=== PATIENT | female | born 1965 | race Caucasian/White ===

== ENCOUNTER → 2017-09-23 | Outpatient (CLI) | payer BC ==
--- NOTE | 2017-09-25 11:20 | MAM ---
EXAM DESCRIPTION: 3D Screening BILATERAL CLINICAL HISTORY: 52 yearsFemaleSCREENING . No complaints. Mother with breast cancer. Hysterectomy. No HRT. Bilateral breast augmentation COMPARISON: 2-D digital screening bilateral study 11/30/2013. No prior reports available. TECHNIQUE: Bilateral digital screening. CC and MLO projection full-field, 2-D images. Bilateral Ziggy implant displacement images, CC and MLO full-field projections, 3-D tomosynthesis. CAD for 2-D images. FINDINGS: The breast parenchymal density pattern is: Heterogeneously dense breast tissue, which may obscure small masses. No skin thickening or nipple retraction bilaterally. Solitary microcalcifications bilaterally. Bilateral saline type subpectoral implants. Implant capsules appear intact where seen. No focal, stellate mass or density no focal asymmetry, and no suspicious microcalcifications bilaterally Stable mammograms compared to prior study, taking into account differences in mammographic technique. IMPRESSION: BI-RADS CATEGORY: 2 - BENIGN FINDINGS. FOLLOW UP: Routine digital bilateral screening, one year interval from September 2017. Written communication explaining the IMPRESSION and follow-up, will be mailed to the patient and referring health care provider. According to the [employer], yearly mammograms are recommended starting at age 40 and continuing as long as a woman is in good health. Any breast change noted on a breast self-exam should be reported promptly to the patient's healthcare provider. Breast MRI is recommended for women with an approximately 20-25% or greater lifetime risk of breast cancer, including women with a strong family history of breast or ovarian cancer and women who have been treated for Hodgkin's disease. A negative mammographic report should not delay tissue diagnosis in patients with significant clinical history or physical findings. Extremely dense breast tissue limits the sensitivity of digital mammography. Electronically signed by: Pawel Liu MD 09/25/2017 11:19 AM [facility]
== END ==
LOC: MAMMO 10:37
PROVIDERS: ATTEND Obstetrics & Gynecology
DX: Z12.31 Encounter for screening mammogram for malignant neoplasm of breast (principal)
CPT/HCPCS: 77063; G0202

== ENCOUNTER → 2018-12-08 | Outpatient (CLI) | payer BC, OTHER ==
--- NOTE | 2018-12-09 19:30 | MAM ---
EXAM DESCRIPTION: 3D Screening BILATERAL : Digital Mammography. CLINICAL HISTORY: 53 years Female SCREENING . No complaints. No personal history of breast cancer. Mother with breast cancer. Childbirth. Hysterectomy. Currently on HRT. Bilateral breast augmentation. Lifetime risk of developing breast cancer (Tyrer-Cuzick model)(%): 16.6. COMPARISON: Bilateral screening digital breast tomosynthesis with Ziggy implant displacement technique 09/23/2017 TECHNIQUE: Bilateral CC and MLO projection full-field images, with Ziggy Implant Displacement digital tomosynthesis mammographic technique. Bilateral 2-D digital full-field images, MLO and CC projections, non-displaced. CAD Bilateral digital 2-D full-field MLO images. CAD not available for tomosynthesis or 2-D images. FINDINGS: The breast parenchymal density pattern is: Heterogeneously dense breast tissue, which may obscure small masses. No skin thickening or nipple retraction. Small region of architectural distortion in the lower inner quadrant of the middle third of the left breast is stable since the prior study. Bilateral saline intramuscular implants. Capsules are intact where seen. Left axillary lymph nodes. No new focal, stellate mass or density, focal asymmetry , and no suspicious microcalcifications bilaterally. Stable mammograms compared to prior study. IMPRESSION: Benign exam. BIRAD CATEGORY: 2 BENIGN FINDINGS. RECOMMENDATIONS: FOLLOW UP: Routine digital bilateral mammographic screening, one year interval from November 2018. Written communication explaining the IMPRESSION and follow-up, will be mailed to the patient and referring health care provider. According to the [employer], yearly mammograms are recommended starting at age 40 and continuing as long as a woman is in good health. Any breast change noted on a breast self-exam should be reported promptly to the patient's healthcare provider. Breast MRI is recommended for women with an approximately 20-25% or greater lifetime risk of breast cancer, including women with a strong family history of breast or ovarian cancer and women who have been treated for Hodgkin's disease. A negative mammographic report should not delay tissue diagnosis in patients with significant clinical history or physical findings. Extremely dense breast tissue limits the sensitivity of digital mammography. Electronically signed by: Pawel Liu MD 12/09/2018 7:27 PM [facility]
== END ==
LOC: MAMMO 10:00
PROVIDERS: ATTEND Obstetrics & Gynecology
DX: Z12.31 Encounter for screening mammogram for malignant neoplasm of breast (principal)

== ENCOUNTER → 2019-03-09 | Outpatient (CLI) | payer BC, OTHER | LOC: LAB.O 09:36 | PROVIDERS: ATTEND Internal Medicine Endocrinology, Diabetes & Metabolism | DX: C73 Malignant neoplasm of thyroid gland (principal) ==

== ENCOUNTER → 2019-09-16 | Outpatient (CLI) | payer BC | LOC: LAB.O 08:29 | PROVIDERS: ATTEND Family Medicine | DX: R63.4 Abnormal weight loss (principal); N95.9 Unspecified menopausal and perimenopausal disorder; R35.0 Frequency of micturition; E03.9 Hypothyroidism, unspecified; E55.9 Vitamin D deficiency, unspecified ==

== ENCOUNTER → 2019-12-05 | Outpatient (CLI) | payer BC | LOC: YCFC.O 12:07 | PROVIDERS: ATTEND Family Medicine | DX: R82.79 Other abnormal findings on microbiological examination of urine (principal) ==

== ENCOUNTER → 2020-05-28 | Outpatient (CLI) | payer BC | LOC: YCFC.O 09:41 | PROVIDERS: ATTEND Nurse Practitioner | DX: Z20.828 Contact with and (suspected) exposure to other viral communicable diseases (principal) ==

== ENCOUNTER → 2020-08-31 | Outpatient (CLI) | payer BC ==
--- NOTE | 2020-09-01 15:40 | US ---
EXAM DESCRIPTION: Abdomen,Complete: Ultrasound. CLINICAL HISTORY: 54 years Female ABDOMINAL MASS. Family history of abdominal aortic aneurysm. COMPARISON: None Available. TECHNIQUE: Transabdominal scanning: grayscale and Doppler modes. FINDINGS: Gallbladder: Surgically removed. No fluid in the gallbladder fossa. Non-tender abdominal wall with transducer pressure. Common bile duct: caliber 6 mm upper normal limits. Liver: normal echogenicity; contour liver capsule smooth where seen. No fluid around the liver. Intrahepatic biliary ducts normal caliber. Doppler hepatopedal flow and normal caliber portal vein 7.5 mm.. Long axis right lobe 15.8 cm.. Pancreas: normal size and echogenicity. Duct not seen. Complete abdominal aorta: Normal caliber from the proximal segment to the distal bifurcation.. IVC: visualized and normal caliber. Right kidney: long axis measures 9.7 cm; volume 101.1. Cortical echogenicity is normal. Normal cortical thickness. No echogenic stones; no hydronephrosis. Left kidney: long axis measures 9.7 cm; volume 113.6. Cortical echogenicity is normal. Normal cortical thickness. No echogenic stones; no hydronephrosis. Spleen: Normal. No focal lesions.. 9.8 cm long axis. Other: Heterogeneous hypoechoic mass which has a capsule in the midline abdomen interpreted to be within the anterior subcutaneous tissues with mass effect on the anterior abdominal wall. Overall dimensions are 5.9 x 5.4 x 2.3 cm. Minimally vascular with small fluid component. IMPRESSION: 1. Heterogeneous midline abdominal wall mass with minimal vascularity and fluid collection. 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 Consider follow-up CT scan abdomen and pelvis without and with IV contrast. 2. Prior cholecystectomy. Common bile duct normal caliber postcholecystectomy. No fluid in the gallbladder fossa. Nontender abdominal wall. 3. Liver and pancreas are negative. Normal caliber of the IVC and abdominal aorta. 4. Bilateral kidneys and spleen are unremarkable. Electronically signed by: Pawel Liu MD 09/01/2020 3:39 PM CDT
--- NOTE | 2020-09-01 15:44 | RAD ---
EXAM DESCRIPTION: Knee,Left Complete: CR/DR/XR. CLINICAL HISTORY: 54 years FemalePAIN IN LEFT KNEE COMPARISON: Ultrasound abdomen on the same visit. TECHNIQUE: 3 views AP, lateral, and patellar sunrise left knee. FINDINGS: Minimal suprapatellar effusion. Possible posterior fusion. In the lateral compartments are unremarkable. Question of subchondral radiolucency or other lesions in the patella best seen on the lateral and patellar sunrise images. Venous varicosities. Normal bone density. No fracture or dislocation. IMPRESSION: Suprapatellar effusion and posterior fusion to the medial and lateral compartments. Probable subchondral bone defects in the patella. No fractures. Electronically signed by: Pawel Liu MD 09/01/2020 3:42 PM CDT
--- NOTE | 2020-09-04 08:43 | MAM ---
EXAM DESCRIPTION: 3D Screening BILATERAL : Digital Mammography. CLINICAL HISTORY: 54 years Female ANNUAL SCREENING . No complaints. Mother with breast cancer age 60. Menarche age 15. Childbirth age 29. Menopause age unknown. No HRT. Bilateral breast augmentation. Lifetime risk of developing breast cancer (Tyrer-Cuzick model)(%): 16.3. COMPARISON: Bilateral screening digital breast tomosynthesis November 2018 and September 2017. TECHNIQUE: Bilateral CC and MLO projection full-field images, with Ziggy Implant Displacement digital tomosynthesis mammographic technique. Bilateral 2-D digital full-field images, MLO and CC projections, non-displaced. Bilateral digital 2-D full-field MLO images. : Implant displaced CAD available for 2-D images. FINDINGS: The breast parenchymal density pattern is: Heterogeneously dense breast tissue, which may obscure small masses. No skin thickening or nipple retraction. Solitary microcalcifications. Bilateral subpectoral implants. Early calcification of the capsules. Capsules appear intact where seen. No new focal, stellate mass or density, focal asymmetry , and no suspicious microcalcifications bilaterally. Stable mammograms compared to prior study. IMPRESSION: Benign exam. BIRAD CATEGORY: 2 BENIGN FINDINGS. RECOMMENDATIONS: FOLLOW UP: Routine digital bilateral mammographic screening, one year interval from August 2020. Written communication explaining the IMPRESSION and follow-up, will be mailed to the patient and referring health care provider. According to the [employer], yearly mammograms are recommended starting at age 40 and continuing as long as a woman is in good health. Any breast change noted on a breast self-exam should be reported promptly to the patient's healthcare provider. Breast MRI is recommended for women with an approximately 20-25% or greater lifetime risk of breast cancer, including women with a strong family history of breast or ovarian cancer and women who have been treated for Hodgkin's disease. A negative mammographic report should not delay tissue diagnosis in patients with significant clinical history or physical findings. Extremely dense breast tissue limits the sensitivity of digital mammography. Electronically signed by: Pawel Liu MD 09/04/2020 8:41 AM CDT
== END ==
LOC: US 09:08
PROVIDERS: ATTEND Family Medicine
DX: Z12.31 Encounter for screening mammogram for malignant neoplasm of breast (principal); Z98.82 Breast implant status; R19.00 Intra-abdominal and pelvic swelling, mass and lump, unspecified site; Z90.49 Acquired absence of other specified parts of digestive tract; M25.562 Pain in left knee; M25.462 Effusion, left knee; M89.9 Disorder of bone, unspecified; I10 Essential (primary) hypertension; E78.5 Hyperlipidemia, unspecified

== ENCOUNTER → 2020-09-20 | Outpatient (CLI) | payer BC ==
--- NOTE | 2020-09-20 14:30 | RAD ---
EXAM DESCRIPTION: Pelvis CLINICAL HISTORY: pain in left hip COMPARISON: None. TECHNIQUE: AP pelvis FINDINGS: Mild degenerative changes are seen in the pubic symphysis. The hips are intact. No pelvic fracturing is detected. A phlebolith is observed in the right side of the pelvis. No soft tissue mass is seen. IMPRESSION: Unremarkable pelvis. Electronically signed by: Herman Brambila MD 09/20/2020 2:28 PM [facility]
--- NOTE | 2020-09-20 14:36 | RAD ---
EXAM: Knee,Left 1 or 2 Views INDICATION: 54 years Female, pain in left knee COMPARISON: Left knee radiograph 08/31/2020 FINDINGS: Single frontal view of the left knee was performed while standing with 45 degrees of flexion. The examination is underpenetrated. No fracture or dislocation is identified. No destructive osseous lesion. Moderate joint space narrowing at the medial patellofemoral compartment with probable subchondral sclerosis. IMPRESSION: Underpenetrated examination with moderate joint space narrowing and probable subchondral sclerosis in the medial compartment of the left knee. No apparent fracture or dislocation. Electronically signed by: Kianna Silverman MD 09/20/2020 2:35 PM [facility]
== END ==
LOC: RAD 08:21
PROVIDERS: ATTEND Orthopaedic Surgery
DX: M25.862 Other specified joint disorders, left knee (principal); M25.552 Pain in left hip

== ENCOUNTER 2020-10-25 05:29 | Day surgery (SDC) | payer BC ==
--- NOTE | 2020-10-23 13:29 | RAD ---
EXAM DESCRIPTION: Chest,2 Views CLINICAL HISTORY: 55 years Female, preop COMPARISON: None. TECHNIQUE: 2 view radiograph of the chest. IMPRESSION: Normal size cardiac silhouette. Elevation of the hemidiaphragm. Bibasal atelectasis or scarring. No pleural effusion or pneumothorax. Thoracic spondylosis. Electronically signed by: Hung Haney MD 10/23/2020 1:27 PM [facility]
[2020-10-25] MEDS ORDERED: levoFLOXacin 500MG IV 100 ML IVPB ONE (06:39)
[2020-10-25] MEDS ORDERED: LACTATED RINGERS 1,000 ML ONE (06:40)
[2020-10-25] MEDS ORDERED: PROPOFOL 200 MG/20 ML VIAL IV ONE (07:00)
[2020-10-25] MEDS ORDERED: DEXAMETHASONE INJ 10 MG/ML VIAL ONE (07:00)
[2020-10-25] MEDS ORDERED: MAGNESIUM SULFATE INJ 1 GM/2 ML VIAL ONE (07:00)
[2020-10-25] MEDS ORDERED: LIDOCAINE 1% 10 ML VIAL INJ ONE (07:00)
[2020-10-25] MEDS ORDERED: BUPIVACAINE 0.25% W/EPI 50 ML VIAL INJ ONE (07:05)
[2020-10-25] MEDS ORDERED: FAMOTIDINE INJ 10 MG/ML VIAL IV ONE (07:56)
[2020-10-25] MEDS ORDERED: KETAMINE HCL 100 MG/ML VIAL ONE (07:56)
[2020-10-25] MEDS ORDERED: fentaNYL CITRATE INJ 50 MCG/ML 2 ML AMP ONE (07:56)
[2020-10-25] MEDS ORDERED: MIDAZOLAM INJ 2 MG/2 ML VIAL ONE (07:57)
[2020-10-25] MEDS ORDERED: DEXMEDETOMIDINE HCL 200 MCG/2 ML INJ IV ONE (07:57)
[2020-10-25] MEDS: HYDROmorphone HCL INJ 2 MG/ML VIAL ONE ×2 (09:40→09:53)
[2020-10-25] MEDS ORDERED: ONDANSETRON INJ 4 MG/2 ML VIAL ONE (09:44)
--- NOTE | 2020-10-25 09:45 | OP ---
DATE OF PROCEDURE: 10/25/20 PREOPERATIVE DIAGNOSIS: 1. Upper abdominal wall mass, likely incisional hernia. POSTOPERATIVE DIAGNOSIS: 1. Incarcerated incisional hernia. PROCEDURE PERFORMED: 1. Repair of incarcerated incisional hernia. SURGEON: Víctor Stover MD POLE FRAMER MACHINE: None ANESTHESIA: Local infiltration of 0.25% Marcaine with epinephrine and general laryngeal mask anesthesia. INDICATION: The patient is a 55-year-old female who has developed a mass that has gotten larger in her upper abdomen. She does not remember a discrete injury. She has gained a significant amount of weight over the last 1 to 2 years. There are no GI symptoms as far as nausea, vomiting, change in her bowel habits, blood per rectum. The patient was brought the Surgical Suite today for exploration of the abdominal wall mass and repair of hernia if indicated. DESCRIPTION OF PROCEDURE: After adequate general laryngeal mask anesthesia was obtained, the patient was prepped and draped in the usual sterile manner in the supine position. At this point, a surgical time-out was taken. At that point, the previous incision from a port was marked along with the skin to the patient's right side of this. It was infiltrated with anesthesia and the skin was incised with a sharp knife. Dissection was carried down through the skin and subcutaneous tissue using electrocautery and blunt dissection. The mass was identified and tracked down a very small hernia defect of approximately 6 to 7 mm transversely. When this was identified, the hernia sac was loosened circumferentially using blunt dissection, but we were unable to reduce the mass due to its size, so using clamps and ligatures of 2-0 Vicryl, it was transected. It appeared to be omentum, so no specimen was sent. When the mass had been transected, the remaining fat was reduced below the defect at the fascia. The fascia was then closed with 4 [id number] sutures of 0-PDS. These were placed sequentially and then tied sequentially. When this was done, the incision was irrigated with saline. Hemostasis was noted to be adequate. The subcutaneous fascia was loosely approximated with 3-0 Vicryl and the skin edges were approximated with skin stapler. Sterile pressure dressing was applied. An abdominal binder was applied. The patient was awakened and taken to the Recovery Room in good and stable condition. Estimated blood loss was approximately 50 to 75 mL. All sponge, needle and instrument counts were correct. #[id number] [facility]
[2020-10-25] MEDS ORDERED: ACETAMINOPHEN W/COD #3 TAB 1 EA TAB ONE (10:21)
[2020-10-25 11:45] VITALS: O2SAT 97
[2020-10-25 12:03] VITALS: BP 111/64; TEMP 97.2
== END 2020-10-25 11:15 | disposition home or self-care (01) ==
LOC: AMB 05:29
PROVIDERS: ATTEND Surgery
DX: K43.0 Incisional hernia with obstruction, without gangrene (principal); K21.9 Gastro-esophageal reflux disease without esophagitis; D64.9 Anemia, unspecified; E89.0 Postprocedural hypothyroidism; Z85.850 Personal history of malignant neoplasm of thyroid; Z90.710 Acquired absence of both cervix and uterus; Z88.0 Allergy status to penicillin; Z79.899 Other long term (current) drug therapy
CPT/HCPCS: 00832; 44346; 49561; 71046; 80053; 81001; 85025; 87086; 87088; 87186; 93005; J1100; J1170; J1956; J2250; J2405; J3010; J3475; J3490; J7120